=== PATIENT | male | born 1930 | race Caucasian/White ===

== ENCOUNTER 2021-05-17 08:26 | Emergency (ER) | payer OTHER, MEDICARE ==
[2021-05-17] MEDS ORDERED: Sodium Chloride 0.9% 2.5 ML Syringe FLUSH PRN (08:57)
[2021-05-17] MEDS ORDERED: Sodium Chloride 0.9% 10 ML Syringe FLUSH PRN (08:57)
--- NOTE | 2021-05-17 08:58 | EDM.PDOC ---
ED HPI GENERAL MEDICAL PROBLEM - General Chief Complaint: Abdominal Pain Stated Complaint: rt side pain Time Seen by Provider: 05/17/21 08:31 - History of Present Illness INITIAL COMMENTS - FREE TEXT/NARRATIVE: History of present illness: [] Patient is pain in the right upper quadrant. It started 3 days ago with back pain. Gradually moved around to the front. It severe for 30 seconds and then it is gone for a few minutes. Only few minutes is gone. He does not detect anything makes it better or worse. His appetite is okay. There is no nausea and vomiting. There is no fever and chills. There is no radiation to the g roin. There is no change in urine or bowel habits. Patient has no history of thromboembolic disease, he does not smoke. He has no family history of thromboembolic disease. He has never been recently immobilized. The patient has a history of a kidney stone but that was different and radiated to the groin. This patient was seen and evaluated during the 2019 SARS-CoV-2 novel coronavirus pandemic period. Community viral transmission is ongoing at time of this encounter and the emergency department is operating under pandemic response procedures. Review of systems: As per history of present illness and below otherwise all systems reviewed and negative. Past medical history: As per history of present illness and as reviewed below otherwise noncontributory. Surgical history: As per history of present illness and as reviewed below otherwise noncontributory. Social history: No reported history of drug or alcohol abuse. Family history: As per history of present illness and as reviewed below otherwise noncontributory. Physical exam: Constitutional - well developed, well-nourished and in no acute distress HEENT - normocephalic, no evidence of trauma - external nose and mouth normal - no mass in neck and no JVD - mucosae moist EYES - full EOM, PERRL, no icterus - no evidence of inflammation, injection, or drainage Respiratory - no respiratory distress, equal bilateral expansion, lungs clear to auscultation and no abnormal lung sounds Cardiovascular - Regular Rhythm with S1 and S2 appreciated and no murmur, gallop or rub. GI - abdomen soft without distension but there is a firm fullness in the right upper quadrant that certainly could be an enlarged liver. The patient is tender in the right upper quadrant and only in the right upper quadrant.- normal bowel sounds - no guard or rebound Musculoskeletal no gross deformity of long bones or joints - no tenderness, swelling or edema Neurologic - Alert and oriented times four - CN II-XII grossly intact - motor sensory and coordination symmetrically normal Psychiatric - appropriate mood and affect with normal thought content Hematologic - No petechiae or purpura - mucosa appropriate color and sclera not pale - normal nail bed color and refill Integument - no rash or evidence of trauma - normal turgor Diagnostics: [] Therapeutics: [] Impression: [] Plan: [] Definitive disposition and diagnosis as appropriate pending reevaluation and review of above. right upper abdomen Pain Score (Numeric/FACES): 8 - Related Data Allergies Allergy/AdvReac Type Severity Reaction Status Date / Time No Known Allergies Allergy Verified 10/04/15 12:04 Home Meds: Home Meds Aspirin [Ecotrin] 325 mg PO BID #70 tab.ec 10/07/15 [Rx] Acetaminophen/oxyCODONE [Percocet 325-5 MG] 1 each PO Q6H PRN #12 tab 05/17/21 [Rx] Past Medical History - Past Health History Medical/Surgical History: Denies Medical/Surgical History Cardiovascular History: Reports: High Cholesterol, Hypertension Gastrointestinal History: Reports: GERD Other Endocrine/Metabolic History: prediabetes - Infectious Disease History Infectious Disease History: Reports: Measles, Mumps Other Infectious Disease History: childhood, malaria-in service - Past Surgical History Musculoskeletal Surgical History: Reports: Arthroscopic Procedure Other Musculoskeletal Surgeries/Procedures:: state repaired right rotator cuff with screws, hx broken pelvis 2014 Social & Family History - Family History Family Medical History: No Pertinent Family History - Tobacco Use Tobacco Use Status *Q: Never Tobacco User - Recreational Drug Use Recreational Drug Use: Yes - Living Situation & Occupation Living situation: Reports: Occupation: Retired ED ROS GENERAL - Review of Systems Review Of Systems: Comprehensive ROS is negative, except as noted in HPI. ED EXAM, GENERAL - Physical Exam Exam: See Below Free Text/Narrative:: My physical exam is in the HPI Course - Vital Signs Text/Narrative:: 10:15 AM D-dimer positive and the rest of the labs not revealing an obvious cause for his peridiaphragmatic pain. CT angio for pulmonary embolus will be done along with follow-through in the abdomen. Additional history was provided by the son same the patient now has admitted that he fell 2 days ago onto the right side and the pain started then. Last Recorded V/S: Last Vital Signs Temp 36.1 C 05/17/21 08:46 Pulse 83 05/17/21 12:24 Resp 18 05/17/21 12:24 BP 161/81 H 05/17/21 12:24 Pulse Ox 93 L 05/17/21 12:24 - Orders/Labs/Meds Orders: Active Orders 24 hr Category Date Time Status Incentive Spirometry [RT Incentive Spirometry] [RC] Care 05/17/21 12:20 Ordered ASDIRECTED UA W/EMY RFLX IF INDICATED [URIN] Stat Lab 05/17/21 09:52 Ordered Sodium Chloride 0.9% [Normal Saline] 1,000 ml Med 05/17/21 10:11 Active IV .Bolus Sodium Chloride 0.9% [Saline Flush] Med 05/17/21 08:57 Active 10 ml FLUSH ASDIRECTED PRN Sodium Chloride 0.9% [Saline Flush] Med 05/17/21 08:57 Active 2.5 ml FLUSH ASDIRECTED PRN Saline Lock Insert [OM.PC] Stat Oth 05/17/21 08:57 Ordered Medication Orders Sodium Chloride (Normal Saline) 1,000 mls @ 250 mls/hr IV .Bolus ONE Stop: 05/17/21 14:10 Last Admin: 05/17/21 10:16 Dose: 250 mls/hr Documented by: VANCMOR Sodium Chloride (Sodium Chloride 0.9% 10 Ml Syringe) 10 ml FLUSH ASDIRECTED PRN PRN Reason: Keep Vein Open Last Admin: 05/17/21 09:10 Dose: 10 ml Documented by: VANCMOR Sodium Chloride (Sodium Chloride 0.9% 2.5 Ml Syringe) 2.5 ml FLUSH ASDIRECTED PRN PRN Reason: Keep Vein Open Last Admin: 05/17/21 09:09 Dose: 2.5 ml Documented by: VANCMOR Labs: Laboratory Tests 05/17/21 05/17/21 05/17/21 Range/Units 08:51 08:51 08:51 WBC 6.37 (4.0-11.0) K/uL RBC 3.83 L (4.50-5.90) M/uL Hgb 12.6 L (13.0-17.0) g/dL Hct 37.4 L (38.0-50.0) % MCV 97.7 (80.0-98.0) fL MCH 32.9 H (27.0-32.0) pg MCHC 33.7 (31.0-37.0) g/dL RDW Std Deviation 50.8 (28.0-62.0) fl RDW Coeff of Carol 14 (11.0-15.0) % Plt Count 165 (150-400) K/uL MPV 10.30 (7.40-12.00) fL Neut % (Auto) 76.6 (48.0-80.0) % Lymph % (Auto) 10.8 L (16.0-40.0) % [place] % (Auto) 10.8 (0.0-15.0) % Eos % (Auto) 1.6 (0.0-7.0) % Baso % (Auto) 0.2 (0.0-1.5) % Neut # (Auto) 4.9 (1.4-5.7) K/uL Lymph # (Auto) 0.7 (0.6-2.4) K/uL [place] # (Auto) 0.7 (0.0-0.8) K/uL Eos # (Auto) 0.1 (0.0-0.7) K/uL Baso # (Auto) 0.0 (0.0-0.1) K/uL Nucleated RBC % 0.0 /100WBC Nucleated RBCs # 0 K/uL D-Dimer, Quantitative 4.15 H (0.0-0.50) mg/L FEU Sodium 141 (136-148) mmol/L Potassium 4.0 (3.5-5.1) mmol/L Chloride 104 (98-107) mmol/L Carbon Dioxide 25.2 (21.0-32.0) mmol/L BUN 20 H (7.0-18.0) mg/dL Creatinine 1.5 H (0.8-1.3) mg/dL Est Cr Clr Drug Dosing 38.82 mL/min Estimated GFR (MDRD) 44.1 ml/min Glucose 136 H (74-106) mg/dL Calcium 8.4 L (8.5-10.1) mg/dL Total Bilirubin 1.5 H (0.2-1.0) mg/dL AST 22 (15-37) IU/L ALT 32 (14-63) IU/L Alkaline Phosphatase 122 H (46-116) U/L Total Protein 7.4 (6.4-8.2) g/dL Albumin 4.2 (3.4-5.0) g/dL Globulin 3.2 (2.6-4.0) g/dL Albumin/Globulin Ratio 1.3 (0.9-1.6) Lipase 15 L (73-393) U/L Urine Color Urine Appearance Urine pH (5.0-8.0) Ur Specific [place] (1.001-1.035) Urine Protein (NEGATIVE) mg/dL Urine Glucose (UA) (NEGATIVE) mg/dL Urine Ketones (NEGATIVE) mg/dL Urine Occult Blood (NEGATIVE) Urine Nitrite (NEGATIVE) Urine Bilirubin (NEGATIVE) Urine Urobilinogen (<2.0) EU/dL Ur Leukocyte Esterase (NEGATIVE) Urine RBC (0-2/HPF) Urine WBC (0-5/HPF) Ur Epithelial Cells (NONE-FEW) Urine Bacteria (NEGATIVE) Urine Mucus (NONE-MOD) 05/17/21 Range/Units 09:46 WBC (4.0-11.0) K/uL RBC (4.50-5.90) M/uL Hgb (13.0-17.0) g/dL Hct (38.0-50.0) % MCV (80.0-98.0) fL MCH (27.0-32.0) pg MCHC (31.0-37.0) g/dL RDW Std Deviation (28.0-62.0) fl RDW Coeff of Carol (11.0-15.0) % Plt Count (150-400) K/uL MPV (7.40-12.00) fL Neut % (Auto) (48.0-80.0) % Lymph % (Auto) (16.0-40.0) % [place] % (Auto) (0.0-15.0) % Eos % (Auto) (0.0-7.0) % Baso % (Auto) (0.0-1.5) % Neut # (Auto) (1.4-5.7) K/uL Lymph # (Auto) (0.6-2.4) K/uL [place] # (Auto) (0.0-0.8) K/uL Eos # (Auto) (0.0-0.7) K/uL Baso # (Auto) (0.0-0.1) K/uL Nucleated RBC % /100WBC Nucleated RBCs # K/uL D-Dimer, Quantitative (0.0-0.50) mg/L FEU Sodium (136-148) mmol/L Potassium (3.5-5.1) mmol/L Chloride (98-107) mmol/L Carbon Dioxide (21.0-32.0) mmol/L BUN (7.0-18.0) mg/dL Creatinine (0.8-1.3) mg/dL Est Cr Clr Drug Dosing mL/min Estimated GFR (MDRD) ml/min Glucose (74-106) mg/dL Calcium (8.5-10.1) mg/dL Total Bilirubin (0.2-1.0) mg/dL AST (15-37) IU/L ALT (14-63) IU/L Alkaline Phosphatase (46-116) U/L Total Protein (6.4-8.2) g/dL Albumin (3.4-5.0) g/dL Globulin (2.6-4.0) g/dL Albumin/Globulin Ratio (0.9-1.6) Lipase (73-393) U/L Urine Color YELLOW Urine Appearance CLEAR Urine pH 5.0 (5.0-8.0) Ur Specific [place] >= 1.030 (1.001-1.035) Urine Protein TRACE H (NEGATIVE) mg/dL Urine Glucose (UA) NEGATIVE (NEGATIVE) mg/dL Urine Ketones NEGATIVE (NEGATIVE) mg/dL Urine Occult Blood SMALL H (NEGATIVE) Urine Nitrite NEGATIVE (NEGATIVE) Urine Bilirubin NEGATIVE (NEGATIVE) Urine Urobilinogen 0.2 (<2.0) EU/dL Ur Leukocyte Esterase NEGATIVE (NEGATIVE) Urine RBC NONE SEEN (0-2/HPF) Urine WBC 0-1 (0-5/HPF) Ur Epithelial Cells RARE (NONE-FEW) Urine Bacteria RARE (NEGATIVE) Urine Mucus LIGHT (NONE-MOD) Meds: Medications Generic Name Dose Route Start Last Admin Trade Name Freq PRN Reason Stop Dose Admin Sodium Chloride 1,000 mls @ 250 mls/hr 05/17/21 10:11 05/17/21 10:16 Normal Saline IV 05/17/21 14:10 250 mls/hr .Bolus ONE Administration Sodium Chloride 10 ml 05/17/21 08:57 05/17/21 09:10 Sodium Chloride 0.9% 10 Ml Syringe FLUSH 10 ml ASDIRECTED PRN Administration Keep Vein Open Sodium Chloride 2.5 ml 05/17/21 08:57 05/17/21 09:09 Sodium Chloride 0.9% 2.5 Ml Syringe FLUSH 2.5 ml ASDIRECTED PRN Administration Keep Vein Open Discontinued Medications Generic Name Dose Route Start Last Admin Trade Name Freq PRN Reason Stop Dose Admin Iopamidol 75 ml 05/17/21 12:19 05/17/21 12:20 Iopamidol 755 Mg/Ml 500 Ml Multipack Bottle IVPUSH 05/17/21 12:20 75 ml ONETIME ONE Administration Ketorolac Tromethamine 15 mg 05/17/21 08:59 05/17/21 09:08 Ketorolac 30 Mg/Ml Sdv IVPUSH 05/17/21 09:00 15 mg ONETIME ONE Administration Oxycodone/Acetaminophen 1 tab 05/17/21 12:23 Acetaminophen/Oxycodone 325-5 Mg Tab PO 05/17/21 12:24 ONETIME ONE Departure - Departure Time of Disposition: 12:26 Disposition: Home, Self-Care 01 Condition: Good Clinical Impression: Fracture of two ribs of right side, Atelectasis, Chest wall pain - Discharge Information Prescriptions: Acetaminophen/oxyCODONE [Percocet 325-5 MG] 1 each PO Q6H PRN #12 tab PRN Reason: Pain (Severe 7-10) Instructions: Rib Fracture, [id number], Atelectasis, Adult Referrals: Carlos Harry MD [Primary Care Provider] - Forms: ED Department Discharge Additional Instructions: Use Colace or Metamucil or MiraLAX or similar stool softening laxatives with plenty water to avoid constipation resulting from the pain medicine. [facility] - Primary Care [address] [place] [id number] [address] The following information is given to patients seen in the emergency department who are being discharged to home. This information is to outline your options for follow-up care. We provide all patients seen in our emergency department with a follow-up referral. The need for follow-up, as well as the timing and circumstances, are variable depending upon the specifics of your emergency department visit. If you don't have a primary care physician on staff, we will provide you with a referral. We always advise you to contact your personal physician following an emergency department visit to inform them of the circumstance of the visit and for follow-up with them and/or the need for any referrals to a consulting specialist. The emergency department will also refer you to a specialist when appropriate. This referral assures that you have the opportunity for follow-up care with a specialist. All of these measure are taken in an effort to provide you with optimal care, which includes your follow-up. Under all circumstances we always encourage you to contact your private physician who remains a resource for coordinating your care. When calling for follow-up care, please make the office aware that this follow-up is from your recent emergency room visit. If for any reason you are refused follow-up, please contact the [facility] Emergency Department at and asked to speak to the emergency department charge nurse. Sepsis Event Note (ED) - Evaluation Sepsis Screening Result: No Definite Risk - Focused Exam Vital Signs: Vital Signs Temp Pulse Resp BP Pulse Ox 05/17/21 12:24 83 18 161/81 H 93 L 05/17/21 12:04 79 18 157/80 H 95 05/17/21 11:10 83 18 152/72 H 91 L 05/17/21 09:19 84 18 158/74 H 93 L 05/17/21 08:46 36.1 C 90 18 187/95 H 95 - My Orders Last 24 Hours: My Active Orders 05/17/21 08:57 Sodium Chloride 0.9% [Saline Flush] 10 ml FLUSH ASDIRECTED PRN Sodium Chloride 0.9% [Saline Flush] 2.5 ml FLUSH ASDIRECTED PRN Saline Lock Insert [OM.PC] Stat 05/17/21 09:52 UA W/EMY RFLX IF INDICATED [URIN] Stat 05/17/21 10:11 Sodium Chloride 0.9% [Normal Saline] 1,000 ml IV .Bolus 05/17/21 12:20 Incentive Spirometry [RT Incentive Spirometry] [RC] ASDIRECTED - Assessment/Plan Last 24 Hours: My Active Orders 05/17/21 08:57 Sodium Chloride 0.9% [Saline Flush] 10 ml FLUSH ASDIRECTED PRN Sodium Chloride 0.9% [Saline Flush] 2.5 ml FLUSH ASDIRECTED PRN Saline Lock Insert [OM.PC] Stat 05/17/21 09:52 UA W/EMY RFLX IF INDICATED [URIN] Stat 05/17/21 10:11 Sodium Chloride 0.9% [Normal Saline] 1,000 ml IV .Bolus 05/17/21 12:20 Incentive Spirometry [RT Incentive Spirometry] [RC] ASDIRECTED
[2021-05-17] MEDS ORDERED: Ketorolac 30 MG/ML SDV IVPUSH ONE (08:59)
[2021-05-17 09:26] LABS: CARBON DIOXIDE,CO2 25.2 mmol/L (21.0-32.0)
--- NOTE | 2021-05-17 09:52 | CR ---
INDICATION: Right eldon diaphragm pain. TECHNIQUE: Chest 1 view. COMPARISON: Chest radiograph 10/04/2015. FINDINGS: Patchy opacity in the right lung base may represent atelectasis or infiltrate. Minimal left basilar atelectasis. No pleural effusion or pneumothorax. Normal heart size and pulmonary vascularity. The bones are unremarkable. IMPRESSION: Patchy opacity in the right lung base may represent atelectasis or infiltrate. Dictated by Dodie Reardon MD @ 05/17/2021 9:51:48 AM (Electronically Signed)
[2021-05-17] MEDS ORDERED: Sodium Chloride 0.9% 1,000 ML IV ONE (10:11)
--- NOTE | 2021-05-17 11:58 | CT ---
INDICATION: Right lower quadrant pain. Elevated D-dimer. TECHNIQUE: CT of the abdomen and pelvis with 100 cc Isovue 370 IV contrast. Coronal and sagittal reconstructions. COMPARISON: None. FINDINGS: The liver, spleen, and adrenal glands are negative. Cholelithiasis without evidence of gallbladder inflammation. No biliary dilation. Mild diffuse pancreatic parenchymal atrophy. Hepatic and portal veins are patent. Symmetric enhancement of the kidneys. Left renal cyst. No hydronephrosis or ureteral dilation. No definite obstructing urinary calculi identified, however evaluation of the distal ureters is limited by streak artifact from a right hip arthroplasty. Underdistended urinary bladder not well evaluated. Enlarged prostate gland. Moderate to large hiatal hernia. No bowel dilation. Colonic diverticulosis without evidence of diverticulitis. Negative appendix. No intraperitoneal free air or fluid. Aortoiliac vascular calcifications. There is haziness of the left abdominal mesentery compatible with mild mesenteric panniculitis. No lymphadenopathy. Degenerative changes of the spine. Small right pleural effusion. Consolidation and patchy opacity in the right lower lobe may represent atelectasis or infiltrate. Mild left basilar atelectasis. Mitral annulus calcifications. IMPRESSION: 1. Small right pleural effusion. Consolidation and patchy opacity in the right lower lobe may represent atelectasis or infiltrate. 2. No other acute findings in the abdomen or pelvis. 3. Moderate to large hiatal hernia. 4. Enlarged prostate gland. 5. 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 Please note that all CT scans at this facility use dose modulation, iterative reconstruction, and/or weight-based dosing when appropriate to reduce radiation dose to as low as reasonably achievable. Dictated by Dodie Reardon MD @ 05/17/2021 11:56:35 AM (Electronically Signed)
--- NOTE | 2021-05-17 12:11 | CT ---
INDICATION: Elevated D-dimer, right lower quadrant pain. COMPARISON: Chest radiograph 05/17/2021 and 10/04/2015. TECHNIQUE: CT of the chest with 100 cc of Isovue 370 IV contrast. Coronal and sagittal reconstructions. 3D post processing was performed. FINDINGS: Normal heart size. Normal caliber thoracic aorta and central pulmonary arteries. Coronary artery and aortic vascular calcifications. Mitral annulus calcifications. Negative for acute pulmonary embolism. No pericardial effusion. Mildly prominent subcarinal and right hilar lymph nodes are likely reactive. No lymphadenopathy by size criteria. Small calcified left hilar lymph nodes compatible with prior granulomatous disease. Small right pleural effusion. Consolidation and patchy opacity in the right lower lobe may represent atelectasis or infiltrate. Additional areas of atelectasis in the lower lungs bilaterally. No pneumothorax. No pulmonary nodules identified. No central endobronchial lesion. Mild bronchial wall thickening in the lower lungs. There is a 1.0 cm low-attenuation nodule in the right thyroid lobe. Small right subareolar nodule likely due to asymmetric minimal gynecomastia. Small sebaceous cyst in the left back. Moderate to large hiatal hernia. The visualized upper abdomen is otherwise unremarkable. Degenerative changes of the spine. Surgical suture anchors in the right humeral head. Acute nondisplaced fractures of the right lateral 7th rib and right posterior 8th rib. IMPRESSION: 1. Negative for acute pulmonary embolism. 2. Small right pleural effusion. 3. Consolidation and patchy opacity in the right lower lobe may represent atelectasis or infiltrate. 4. Acute nondisplaced fractures of the right lateral 7th rib and right posterior 8th rib. 5. Moderate to large hiatal hernia. Please note that all CT scans at this facility use dose modulation, iterative reconstruction, and/or weight-based dosing when appropriate to reduce radiation dose to as low as reasonably achievable. Dictated by Dodie Reardon MD @ 05/17/2021 12:10:26 PM (Electronically Signed)
[2021-05-17] MEDS ORDERED: Iopamidol 755 MG/ML 500 ML Multipack Bottle IVPUSH ONE (12:19)
[2021-05-17] MEDS ORDERED: Acetaminophen/oxyCODONE 325-5 MG Tab PO ONE (12:23)
[2021-05-17 12:25] VITALS: BP 161/81; PULSE 83
== END 2021-05-17 13:16 | disposition home or self-care (01) ==
LOC: MW.ED 08:26
DX: S22.42XA Multiple fractures of ribs, left side, initial encounter for closed fracture (principal); J98.11 Atelectasis; E78.00 Pure hypercholesterolemia, unspecified; Z79.82 Long term (current) use of aspirin; I10 Essential (primary) hypertension; X58.XXXA Exposure to other specified factors, initial encounter
CPT/HCPCS: 36415; 71045; 71275; 74177; 80053; 81001; 83690; 85025; 85379; 96374; 99284; A9270; J1885; J7030; Q9967